=== PATIENT | male | born 1960 | race Caucasian/White ===

== ENCOUNTER → 2024-02-21 10:41 | Outpatient (REF) | payer BC, SELFPAY | LOC: RAD 10:41 | PROVIDERS: ATTENDING PHYSICIAN Physician Assistant; FAMILY PHYSICIAN Internal Medicine | DX: I73.9 Peripheral vascular disease, unspecified (principal) | CPT/HCPCS: 93922; 93925 ==

== ENCOUNTER → 2024-03-28 14:37 | Outpatient (REF) | payer BC, SELFPAY | LOC: HWRCS 14:37 | PROVIDERS: ATTENDING PHYSICIAN Internal Medicine; FAMILY PHYSICIAN Nurse Practitioner Primary Care | DX: I73.9 Peripheral vascular disease, unspecified (principal); I25.10 Atherosclerotic heart disease of native coronary artery without angina pectoris; I49.1 Atrial premature depolarization | CPT/HCPCS: 93306 ==

== ENCOUNTER 2024-04-28 06:12 | Day surgery (SDC) | payer BC, SELFPAY ==
[2024-04-24 10:02] VITALS: BMI 29.8
[2024-04-28] VITALS (23 sets, daily range): BP systolic 122–163; BP diastolic 57–95
[2024-04-28 07:00] LABS: Glucose - Point of Care 166 mg/dl (70-99)
[2024-04-28] MEDS: NSS 266 ML IV (07:07)
--- NOTE | 2024-04-28 07:10 | W.SUR.PREOP ---
Pre-Operative Surgical Note
-
I have examined this patient prior to the performance of the scheduled procedure.
The patient's condition is unchanged from the time of the current History and
Physical and the patient is able to undergo the scheduled procedure.
--- NOTE | 2024-04-28 09:15 | W.SUR.POST ---
Surgical Immediate Post Op
Note
Pre Op Diagnosis: PAD
Post Op Diagnosis: PAD
Procedure Performed: RLE angiogram, PRODUCT SUPPORT ANALYST and stent SFA and popliteal artery
Primary Surgeon: Dulce
Anesthesia: local and sedation
Estimated Blood Loss: <2cc
Fluids: see anesthesia flow sheet
Drains/Shunts: none
Specimens/Cultures: none
Doppler/Duplex/Angio (Y/N): Y
Complications: none
Operative Findings: successfull stent placements
[2024-04-28 09:51] LABS: Glucose - Point of Care 155 mg/dl (70-99)
[2024-04-28] MEDS: PLAVIX 150 MG PO (09:58)
--- NOTE | 2024-04-28 16:01 | OR.RPT ---
Operative Report
Operative Report
Date of Operation: 04/28/2024
Pre Op Diagnosis: Debilitating right lower extremity claudication
Post Op Diagnosis: Debilitating extremity claudication
Procedure:
1.) Intravascular lithotripsy to right popliteal artery and superficial femoral artery calcified occlusive disease (6 mm x 80 mm E8 shockwave balloon)
2.) Balloon angioplasty and stenting of right proximal superficial femoral artery (6 mm x 120 mm over PTX Tech)
3.) Drug coated balloon angioplasty of in-stent restenosis, right superficial femoral artery stent (6 mm x 220 mm Lutonix)
4.) Drug coated balloon angioplasty of right popliteal artery, below the knee and behind the knee
5.) Diagnostic aortobiiliac arteriogram
6.) Diagnostic right lower extremity arteriogram
7.) Ultrasound-guided percutaneous access to the left common femoral artery
Surgeon: Musa Cardona III, MD
Anesthesia: Sedation with local
Fluoroscopy:
30.6 min
249 mGy
43.24 Gy.cm2
Complications: None
Estimated Blood Loss: Minimal
History and Indications for Procedure: 63-year-old male with known peripheral arterial occlusive disease and debilitating claudication of his right lower extremity
Procedure in Detail: Pasquale Etienne was correctly identified and placed supine on the operating table. After adequate induction of anesthesia the bilateral groins were prepped and draped in the usual sterile fashion. A timeout was performed with the
nursing and anesthesia staff confirming the patient's identity as well as the nature and laterality of the procedure.
The left common femoral artery was identified under ultrasound guidance. The artery was patent. The superior and inferior aspects of the femoral head were identified with radiographic guidance and marked at the skin level. The proposed puncture site
was infiltrated with local anesthesia. Under ultrasound guidance we accessed the left common femoral artery with a micropuncture needle and upsized to a 5 Fr sheath over a short floppy tip Amplatz wire. The wire and a ShepherAccelergy hook flush catheter
were advanced into the distal abdominal aorta and a diagnostic aorto-biiliac arteriogram was performed:
AORTO-ILIAC ARTERIOGRAM:
Aorta: Patent with no stenosis is identified
Right common iliac artery: Patent with no stenosis is identified
Right external iliac artery: Patent with no stenosis is identified
Left common iliac artery: Patent with no stenosis is identified
Left external iliac artery: Patent with no stenosis is identified
Under roadmap guidance using a Glidewire and the iPixCel hook catheter we selected the right common iliac artery and then the external iliac artery. A catheter was tracked up and over the aortic bifurcation and placed in the distal external iliac
artery. A diagnostic right lower extremity arteriogram was then performed which demonstrated the following:
RIGHT LOWER EXTREMITY:
Common femoral artery: Patent with no significant stenosis is identified
Profunda femoral artery: Patent with no significant stenosis is identified
Superficial femoral artery: Patent proximally. High grade stenosis. Calcified diffusely. Moderate to high grade in-stent restenosis throughout.
Popliteal artery: Patent. Heavily calcified. High grade calcified stenoses behind/below the knee with focal occlusion behind knee.
Anterior tibial artery: Patent. Stenosis at the origin
Tibioperoneal trunk: Appears to be occluded
Peroneal artery: Reconstituted proximally. Patent distally
Posterior tibial artery: Occluded proximally. Patent distally.
ENDOVASCULAR INTERVENTION: Systemic heparin was administered. Exchanged out for a 6 Fr 45 cm sheath over a stiff wire. Selected the superficial femoral artery under roadmap guidance with Quickcross catheter and glidewire. The SFA disease was crossed
with a quick cross catheter and Glidewire. I was then able to cross the heavily calcified occlusive disease and popliteal artery behind the knee and below the knee. The wire and catheter were advanced into the below-knee artery and subtraction angio
confirmed proper position in the true lumen. Exchanged out for a 0.014 wire.
Due to the heavily calcified nature of the arterial disease and in an effort to modify the calcium to achieve maximum luminal gain with endovascular intervention I elected to proceed with intravascular lithotripsy. A 6 mm x 80 mm Shockwave balloon
was placed distally across the calcified popliteal artery stenosis under roadmap guidance. Alternating rounds of lithotripsy pulse delivery at sub-nominal pressure and angioplasty at nominal pressure was performed across the stenosis. In between
rounds of pulse delivery and angioplasty the balloon was deflated and repositioned under roadmap guidance. The popliteal artery and proximal superficial femoral artery were treated. All 400 pulses were delivered.
Subsequent arteriogram demonstrated a significantly improved result. The proximal superficial femoral artery was patent however there was a dissection flap noted. Under roadmap guidance I brought into position a 6 mm x 120 mm Zilver PTX stent. This
was positioned in the desired location in the proximal superficial femoral artery, slightly overlapping with the existing stent and deployed. I used a 6 mm x 220 mm Lutonix drug coated balloon to treat the areas of in-stent restenosis in the
existing superficial femoral artery stent. The 6 mm x 120 mm Zilver PTX stent was post-dilated with a 6 mm angioplasty balloon.
There was residual stenosis in the popliteal artery below and behind the knee. I treated this with a 4 mm x 80 mm Lutonix drug coated carotid balloon.
COMPLETION ARTERIOGRAM: Brisk flow through the superficial femoral artery with no significant residual stenosis. Patent popliteal artery with no significant residual stenosis. Mild residual stenosis behind the knee. Patent posterior tibial and
peroneal arteries. Patent anterior tibial artery but slower flow and stenosis near its origin identified. Improved tibial artery flow compared to pre-treatment.
Satisfied with this result we concluded the procedure. The sheath tip was pulled back into the left external iliac artery. Protamine was administered.
The patient tolerated the procedure well and was taken to the recovery area in stable condition.
Signed:
Musa Cardona III, MD
[facility] Vascular Surgery
== END 2024-04-28 14:36 | disposition home or self-care (01) ==
LOC: CATH 06:12
PROVIDERS: ATTENDING PHYSICIAN Surgery Vascular Surgery; FAMILY PHYSICIAN Internal Medicine; OTHER PHYSICIAN Internal Medicine
DX: I70.211 Atherosclerosis of native arteries of extremities with intermittent claudication, right leg (principal); Z87.891 Personal history of nicotine dependence; E11.9 Type 2 diabetes mellitus without complications; Z79.01 Long term (current) use of anticoagulants; E78.5 Hyperlipidemia, unspecified; Z95.820 Peripheral vascular angioplasty status with implants and grafts
CPT/HCPCS: C9765; 75625; 75716; 76937; 82962; 93005; C1725; C1769; C1874; C1894; Q9967

== ENCOUNTER → 2024-06-07 13:39 | Outpatient (REF) | payer BC, SELFPAY | LOC: DHVS 13:39 | PROVIDERS: ATTENDING PHYSICIAN Surgery Vascular Surgery; FAMILY PHYSICIAN Internal Medicine; REFERRING PHYSICIAN Internal Medicine | DX: I73.9 Peripheral vascular disease, unspecified (principal) | CPT/HCPCS: 93922; 93925 ==

== ENCOUNTER → 2024-12-29 14:57 | Outpatient (REF) | payer BC, SELFPAY | LOC: DHVS 14:57 | PROVIDERS: ATTENDING PHYSICIAN Registered Nurse; FAMILY PHYSICIAN Internal Medicine | DX: I73.9 Peripheral vascular disease, unspecified (principal) | CPT/HCPCS: 93922; 93925 ==

== ENCOUNTER → 2025-08-08 14:43 | Outpatient (REF) | payer BC, SELFPAY | LOC: DHVS 14:43 | PROVIDERS: ATTENDING PHYSICIAN Physician Assistant; FAMILY PHYSICIAN Nurse Practitioner Primary Care | DX: I73.9 Peripheral vascular disease, unspecified (principal) | CPT/HCPCS: 93922; 93925 ==